=== PATIENT | male | born 1950 | race Caucasian/White ===

== ENCOUNTER → 2017-05-17 | Outpatient (CLI) | payer OTHER ==
[~2017-05-17] MED LIST: AMITRIPTYLINE H50 M2 PO; ASPIRIN EC81 M1 PO; FENTANYL PATCH75 MCG TOP; FLOMAX PO; LIPITOR20 MG PO; NEXIUM40 MG PO; REMERON15 M1 PO
== END ==
LOC: RAD 11:07
DX: J44.9 Chronic obstructive pulmonary disease, unspecified (principal)

== ENCOUNTER → 2020-01-08 | Outpatient (CLI) | payer OTHER | LOC: CAT 12:29 | PROVIDERS: ATTEND Family Medicine | DX: Z12.2 Encounter for screening for malignant neoplasm of respiratory organs (principal); F17.210 Nicotine dependence, cigarettes, uncomplicated; I25.10 Atherosclerotic heart disease of native coronary artery without angina pectoris; J98.4 Other disorders of lung; I67.1 Cerebral aneurysm, nonruptured ==

== ENCOUNTER 2020-06-04 11:03 | Emergency (ER) | payer OTHER ==
[~2020-06-04] VITALS: Ht 177.8 cm; Wt 74.4 kg
[2020-06-04] MEDS ORDERED: TESTOSTERO200 MG/1 M IM (11:12)
[2020-06-04] MEDS ORDERED: FENTANYL1 EAC2 TOP (11:13)
[2020-06-04] MEDS ORDERED: TAMSULOSIN HCL0.4 MG PO (11:13)
[2020-06-04] MEDS ORDERED: NORCO7.5 PO (11:13)
[2020-06-04 13:44] LABS: BASOPHILS 1.5 % (0.0-2.0); EOSINOPHILS 2.2 % (0.0-3.0); HEMATOCRIT 47.7 % (42.0-52.0); HEMOGLOBIN 15.7 gm/dL (14.0-18.0); LYMPHOCYTES 13.5 % (24.0-44.0); MCH 31.9 pg (26.0-34.0); MCHC 32.8 g/dL (28.0-37.0); MCV 97.2 fL (80.0-100.0); MONOCYTES 3.3 % (1.0-8.0); PLATELET COUNT 147 thou/uL (150-400); POLYS 79.5 % (36.0-66.0); RBC 4.91 mil/uL (4.50-6.00); RDW 14.8 % (10.5-14.5)
[2020-06-04 14:04] LABS: CALCIUM 8.7 mg/dL (8.5-10.1); POTASSIUM 4.3 mmol/L (3.5-5.1)
[2020-06-04 14:10] LABS: ALBUMIN 3.7 g/dL (3.4-5.0); TOTAL BILIRUBIN 0.5 mg/dL (0.2-1.0); TOTAL PROTEIN 6.9 g/dL (6.4-8.2)
[2020-06-04] MEDS ORDERED: PREDNISONE 20 M20 MG PO (16:44)
[2020-06-04] MEDS ORDERED: ZANAFLEX4 MG PO (16:44)
[2020-06-04 17:29] VITALS: BP 139/85
== END 2020-06-04 17:35 | disposition home or self-care (01) ==
LOC: ER 11:03
PROVIDERS: Nurse Practitioner
DX: M54.32 Sciatica, left side (principal); K21.9 Gastro-esophageal reflux disease without esophagitis; Z79.899 Other long term (current) drug therapy; Z88.0 Allergy status to penicillin; Z91.018 Allergy to other foods

== ENCOUNTER → 2020-06-10 | Outpatient (CLI) | payer OTHER ==
[~2020-06-10] MED LIST changes: +BYSTOLIC10 MG PO; +DURAGESIC1 EAC2 TRANSDERM; +FENTANYL1 EAC2 TOP; -FLOMAX PO; +FLOMAX0.4 MG PO; +MUPIROCIN1 GM TOP; +NORCO7.5 PO; +PREDNISONE 20 M20 MG PO; +ROSUVASTATIN CA20 MG PO; +TAMSULOSIN HCL0.4 MG PO; +TESTOSTERO200 MG/1 M IM; +TIZANIDINE HCL4 M1 PO; +ZANAFLEX4 MG PO
== END ==
LOC: SJCVCIMAG 14:41 → SJCVC 14:41
PROVIDERS: ATTEND Nuclear Medicine Nuclear Cardiology
DX: R94.31 Abnormal electrocardiogram [ECG] [EKG] (principal); E29.1 Testicular hypofunction; I71.4 Abdominal aortic aneurysm, without rupture; G89.29 Other chronic pain; I72.3 Aneurysm of iliac artery; I67.1 Cerebral aneurysm, nonruptured; I65.23 Occlusion and stenosis of bilateral carotid arteries; I77.9 Disorder of arteries and arterioles, unspecified; M54.40 Lumbago with sciatica, unspecified side; F17.200 Nicotine dependence, unspecified, uncomplicated; Z79.899 Other long term (current) drug therapy; Z88.0 Allergy status to penicillin

== ENCOUNTER → 2020-06-17 | Outpatient (CLI) | payer OTHER ==
[~2020-06-17] VITALS: Ht 177.8 cm; Wt 74.4 kg
[2020-06-17 07:26] VITALS: BP 113/65
[2020-06-17 08:49] LABS: BASOPHILS 1.3 % (0.0-2.0); EOSINOPHILS 1.7 % (0.0-3.0); HEMATOCRIT 42.7 % (42.0-52.0); HEMOGLOBIN 13.8 gm/dL (14.0-18.0); LYMPHOCYTES 19.6 % (24.0-44.0); MCH 31.5 pg (26.0-34.0); MCHC 32.3 g/dL (28.0-37.0); MCV 97.3 fL (80.0-100.0); MONOCYTES 3.9 % (1.0-8.0); PLATELET COUNT 149 thou/uL (150-400); POLYS 73.5 % (36.0-66.0); RBC 4.39 mil/uL (4.50-6.00); RDW 15.2 % (10.5-14.5); WBC 12.2 thou/uL (4.0-11.0)
[2020-06-17 09:03] LABS: APTT 26.2 Seconds (24.5-32.8); CALCIUM 8.1 mg/dL (8.5-10.1); INR 1.1; POTASSIUM 3.8 mmol/L (3.5-5.1); PROTIME 11.5 Seconds (9.3-11.4); TOTAL BILIRUBIN 0.3 mg/dL (0.2-1.0); TOTAL PROTEIN 5.7 g/dL (6.4-8.2)
[2020-06-17 10:26] LABS: URINE BLOOD NEGATIVE (Negative); URINE CLARITY CLEAR; URINE COLOR YELLOW; URINE GLUCOSE-RANDOM* NEGATIVE (Negative); URINE KETONES TRACE (Negative); URINE LEUKOCYTES-REFLEX NEGATIVE (Negative); URINE NITRITE-REFLEX NEGATIVE (Negative); URINE PROTEIN (DIPSTICK) TRACE (Negative); URINE SPECIFIC GRAVITY 1.025 (1.005-1.035); URINE UROBILINOGEN 0.2 E.U./dl (0.2-1.0)
[2020-06-17 10:31] LABS: ICTOTEST (BILI CONFIRMATORY) Negative (Negative); URINE BILIRUBIN NEGATIVE (Negative)
--- NOTE | 2020-06-17 14:16 | CATHLAB ---
[facility] [place] [address] INVASIVE PROCEDURE REPORT Name: MCELROYDOE C Room #: REG IVORY Alejandro.#: [id number] Admission: 06/17/20 Attend Phys: Herbert Chou MD Discharge: Date of : 48 Report #: [id number] THIS REPORT FOR: cc: Trung Matthew MD, Neal A. MD Mancuso, Gerald M. MD [facility] ~ APPROVED REPORT Study performed: 06/17/2020 11:58:53 Patient Details Patient Status: Out-Patient Room #: The patient is a 70 year-old male Event Personnel Flash Marshall Health Plan Advisor, Gely Vaughn RT(R)() Monitor, Alfonso Sparks RTR Scrub, Benita Groves RN money examiner Performed Art Access - L femoral artery* Left Heart Cath w/or w/o Coronaries [id number] [facility] [address] Initial Mod Sed Same Phys/QHP [facility] [id number] Mod Sed Same Phys/QHP Ea [id number] Procedure Narrative The patient was brought electively to the Cardiac Catheterization Laboratory and was prepped and draped in a sterile manner. The left femoral was infiltrated with 2% Lidocaine subcutaneous anesthesia. A SHEATH BRITE-TIP 6F X 11CM ([id number]) sheath was inserted into the LFA 6F^. Coronary angiography was performed using coronary diagnostic catheters. The right coronary system was accessed and visualized with a JR4 catheter. The left coronary system was accessed and visualized with a JL5 catheter. The left ventricle was accessed and visualized with a PIGTAIL catheter. Hemostasis was obtained with manual pressure following sheath removal without any complications. The patient tolerated the procedure well and there were no complications associated with the procedure. There was no hematoma. Intraoperative Conscious Sedation Fentanyl 150 mcg Versed 1 mg Fluoro Time: 19.43 minutes Dose: DAP 56991.30 cGycm2 Contrast Type and Amount: Visipaque 171 ml [facility] [place] [address] INVASIVE PROCEDURE REPORT Name: DOE MCELROY Room #: REG [facility]#: [id number] Admission: 06/17/20 Attend Phys: Herbert Chou, Discharge: Date of : 48 Report #: [id number] Hemodynamics The aortic pressure is 120/69 mmHg with a mean of 73 mmHg. The left ventricular pressure is 118/-6 mmHg with a mean of mmHg. The left ventricular end diastolic pressure is 13 mmHg. PCI Technique Lesion 2 Percutaneous Coronary Intervention was performed on the External iliac. Conclusion #1. Normal left ventricular size and systolic function EF 55% #2 left main short free of disease giving rise to LAD and circumflex. #3 LAD is minimal distal disease small caliber distally at the apex. #4 circumflex OM nondominant with mild irregularity #5 dominant right coronary with mild proximal disease 30% and a mid vessel disease of 40 to 50% with preserved PDA CRISTOBAL. No occlusive disease. Recommendations and plan: Continue aggressive risk factor modification no indication for coronary intervention. Okay to proceed with aortic stent graft repair of aortic aneurysm. <ELECTRONICALLY SIGNED> By: Flash Marshall MD, FACC 06/17/20 1415 1415 1415 Flash Marshall MD, FACC /INF
--- NOTE | 2020-06-17 15:25 | EKG ---
[address] [place] [address] ELECTROCARDIOGRAM REPORT Name: DOE MCELROY Room #: REG [facility]#: [id number] Admission: 06/17/20 Attend Phys: Herbert Chou MD Discharge: Date of : 48 Report #: [id number] [facility] Test Date: 2020-06-17 Test Time: 07:51:18 Pat Name: DOE MCELROY Department: Room: Gender: M Airline Reservation Agent: PETE : 1950 Requested By: Rashard Shaffer Order Number: [id number] MD: Nathanael Amaro Measurements Intervals [place] Rate: 55 P: 63 CA: 174 QRS: 22 QRSD: 82 T: 82 QT: 404 QTc: 387 Interpretive Statements Sinus rhythm Probable left atrial enlargement Nonspecific T abnormalities, lateral leads Compared to ECG 06/19/2008 08:16:41 T-wave abnormality now present ST (T wave) deviation no longer present Electronically Signed On 06-17-2020 15:24:56 CDT by Nathanael Amaro [email or web address] <ELECTRONICALLY SIGNED> By: Nathanael Amaro MD 06/17/20 1524 0751 [id number] Nathanael Amaro MD /BERENICE
== END | disposition home or self-care (01) ==
LOC: CATH 06:22
PROVIDERS: Surgery Vascular Surgery; ATTEND Nuclear Medicine Nuclear Cardiology
DX: I25.10 Atherosclerotic heart disease of native coronary artery without angina pectoris (principal); I71.4 Abdominal aortic aneurysm, without rupture; I72.3 Aneurysm of iliac artery; I70.1 Atherosclerosis of renal artery; I70.211 Atherosclerosis of native arteries of extremities with intermittent claudication, right leg; E78.5 Hyperlipidemia, unspecified; K21.9 Gastro-esophageal reflux disease without esophagitis; G47.30 Sleep apnea, unspecified; F17.210 Nicotine dependence, cigarettes, uncomplicated; Z98.890 Other specified postprocedural states; Z79.899 Other long term (current) drug therapy

== ENCOUNTER → 2020-06-24 | Outpatient (CLI) | payer OTHER ==
[~2020-06-24] MED LIST changes: +PLAVIX 75 MG TA75 MG PO
== END ==
LOC: LAB 10:30
PROVIDERS: ATTEND Surgery Vascular Surgery
DX: Z01.812 Encounter for preprocedural laboratory examination (principal); Z20.822 Contact with and (suspected) exposure to COVID-19

== ENCOUNTER 2020-06-28 06:19 | Inpatient (IN) | payer OTHER ==
[~2020-06-28] VITALS: Ht 177.8 cm; Wt 61.2 kg
[2020-06-28] VITALS (21 sets, daily range): BP systolic 95–143; BP diastolic 52–70
--- NOTE | 2020-06-28 16:21 | NUR ---
patient arrives to icu at 1400 from AAA repair procedure. patient arrives with nusing staff and cardene gtt 10mg/h. vital signs stable. patient has complaints of pain in bilateral groin sites. patient to lay flat for 4 hours
[2020-06-29] VITALS (25 sets, daily range): BP systolic 92–126; BP diastolic 44–72
[2020-06-29 06:09] LABS: HEMATOCRIT 38.2 % (42.0-52.0); HEMOGLOBIN 12.5 gm/dL (14.0-18.0); MCH 31.7 pg (26.0-34.0); MCHC 32.9 g/dL (28.0-37.0); MCV 96.4 fL (80.0-100.0); RBC 3.96 mil/uL (4.50-6.00); RDW 15.2 % (10.5-14.5)
[2020-06-29 06:23] LABS: CALCIUM 7.5 mg/dL (8.5-10.1); CREATININE 0.9 mg/dL (0.7-1.3); POTASSIUM 4.4 mmol/L (3.5-5.1)
--- NOTE | 2020-06-29 20:00 | NUR ---
PT ASSESSMENT COMPLETED, C/OING OF PAIN IN HIS GROIN AREA. PT MEDICATED. WILL CONT TO MONITOR.
--- NOTE | 2020-06-29 22:00 | NUR ---
PT PUT CALL LIGHT ON TO TELL ME HIS FINGERS ON HIS RT HAND WERE NUMB, NERU CHECK DONE NO CHANGES NOTED. VSS. WILL CONT TO MONITOR.
[2020-06-30] VITALS: BP 106/51
[2020-06-30 02:00] VITALS: BP 106/51
--- NOTE | 2020-06-30 03:22 | NUR ---
REPORT GIVEN TO ONCOMING NURSE.
--- NOTE | 2020-06-30 03:27 | NUR ---
PT TRANSFERRED TO ROOM 246 WITH BELONGINGS. PT REMAINS A&O X4, LEFT A-LINE PATENT, JOSE MIGUEL GROIN SITES CLEAN, DRY, INTACT WITHOUT BLEEDING OR HEMATOMA, VOIDING WITHOUT DIFFICULTY.
[2020-06-30 08:26] VITALS: BP 133/61
[2020-06-30 08:58] VITALS: BP 106/51
--- NOTE | 2020-06-30 10:10 | NUR ---
HOME WITH SELF CARE VIA WC. ALL BELONGINGS WITH PT;
--- NOTE | 2020-07-03 08:15 | O ---
[facility] [place] [address] OPERATIVE REPORT Name: LILIBETHDOE Chaka Room #: 246-P [facility] IN M.R.#: [id number] Admission: 06/28/20 Attend Phys: Rashard Shaffer MD Discharge: 06/30/20 Date of : 48 Report #: [id number] THIS REPORT FOR: cc: Trung Matthew MD, Neal A. MD Forman,Rashard Thomas MD ~ DATE OF SERVICE: 06/28/2020 PREOPERATIVE DIAGNOSIS: Abdominal and bilateral iliac artery aneurysms. POSTOPERATIVE DIAGNOSIS: Abdominal and bilateral iliac artery aneurysms. OPERATION: Stent graft implant for abdominal and bilateral iliac artery aneurysms with intraoperative arteriography and angioplasty. SURGEON: Dr. Rashard Shaffer and Dr. Herbert Chou. TUNNEL MINER: CONSTANCE Rodríguez. ANESTHESIA: General. INDICATIONS: The patient is a 70-year-old with a large abdominal and bilateral common iliac artery aneurysms. These were found when the patient was evaluated for back discomfort. FINDINGS AND TECHNIQUE: After general anesthesia was established, incisions were made in both groins to expose the common femoral arteries on each side, 10,000 units of heparin were given and 1000 units was given additionally at the 1-hour shoshana. Through each side, the Amplatz needle was used to gain access followed by guidewire and 6-Zimbabwean introducer. Over the guidewire, an exchange catheter was placed and Lj wire was placed on the left and an Amplatz wire was placed on the right. Because the patient had large common iliac aneurysms, a decision had been made prior to surgery to occlude the hypogastric artery on the right and this was done in the catheterization lab preop and then to place iliac branch device on the left side. With this plan in mind over the stiff wire on the right side, a 12-Zimbabwean introducer was placed through femoral artery cutdown and through the left side, the 16-Zimbabwean catheter sheath was placed over the stiff wire. A Storq wire was passed up through the left side sheath and it was captured with [facility] [address] [place] [address] OPERATIVE REPORT Name: DOE MCELROY Room #: 246-P [facility] IN M.R.#: [id number] Admission: 06/28/20 Attend Phys: Rashard Shaffre MD Discharge: 06/30/20 Date of : 48 Report #: [id number] a snare placed through the right side. With this technique, the Storq wire was brought up and over the aortic bifurcation and brought out through the right-sided 12-Zimbabwean dilator. This allowed the 12-Zimbabwean introducer to be advanced over the bifurcation and headed down the common iliac artery. Through the 12-Zimbabwean introducer, then the iliac branch device was placed. A 23 x 10 cm iliac branch device was placed on the left side through the 16-Zimbabwean catheter and opened and then through the sheath on the right side, wire was placed down through the open flow divider on the branch device into the hypogastric artery and good position was ascertained with arteriography prior to deploying a 10 mm x 7 cm internal iliac stent. The device was fully deployed using the compliant balloon placed through the left side and an angioplasty balloon placed into the hypogastric artery to fully dilate the device as well as an ostial hypogastric stenosis. When the iliac device was fully deployed, then the 12-Zimbabwean catheter was exchanged through an 18-Zimbabwean catheter on the right and then the main body for the aortic component of the 28.5 x 14.5 x 16 device was placed through the right femoral artery. Through the left side, a visceral catheter was placed into the left renal artery and the Storq wire was passed distally, so that an exchange catheter could be placed at the origin. This allowed good identification of the lowest renal artery to deploy the main body. The main body was opened such that the contralateral gate was opened. This was cannulated and then a marked pigtail was used to identify the flow divider on the main body as well as the landing zone on the iliac branch device and then a 27 mm x 10 cm bridge piece was placed. On the right side, the marked pigtail was then placed to identify the length needed to extend the graft from the main body down into the external iliac where previously (prior to this operation), an external iliac stent was placed. A 12 mm x 10 cm device was selected for this purpose. With all of the devices now in place, the compliant balloon was placed up each side sequentially to fully deploy. An angioplasty was also done of the iliac arteries on each side where there had been some narrowing, particularly on the right side where the device extended into a previously angioplastied region. With all of the angioplasties complete and the devices fully deployed, final arteriogram was taken using the pigtail catheter and this showed no evidence of [facility] [address] [place] [address] OPERATIVE REPORT Name: DOE MCELROY Room #: 246-P [facility] IN M.R.#: [id number] Admission: 06/28/20 Attend Phys: Rashard Shaffer MD Discharge: 06/30/20 Date of : 48 Report #: [id number] endoleak and good position of all the grafts. Satisfied with our graft position, dilators were replaced in the sheaths. Sheaths and dilators were removed and then stiff wires were removed and then each femoral cutdown was repaired with interrupted 6-0 Prolene. Flow was reestablished with return of good distal pulses. Protamine was given to reverse the heparin. The wounds were closed in layers at this point. The patient tolerated the procedure well and was taken to the recovery area in good condition. All counts reported as correct. <ELECTRONICALLY SIGNED> By: Rashard Shaffer MD 07/03/2015 0832 Rashard Shaffer MD /nt
== END 2020-06-30 10:10 | disposition home or self-care (01) | DRG 254 ==
LOC: TBA 06:19 → PRE 11:32 → ICU 14:23
PROVIDERS: Physician Assistant; ADMIT Surgery Vascular Surgery; ATTEND Surgery Vascular Surgery
DX: I71.4 Abdominal aortic aneurysm, without rupture (principal); I72.3 Aneurysm of iliac artery; E78.00 Pure hypercholesterolemia, unspecified; G89.29 Other chronic pain; M54.9 Dorsalgia, unspecified; K21.9 Gastro-esophageal reflux disease without esophagitis; I10 Essential (primary) hypertension; Z98.1 Arthrodesis status
CPT/HCPCS: 10078; 47375; 50010; 50101; 50386; 50455; 52287; 54118; 56524; 56526; 56528; 56531; 56668; 56760; 57093; 62110; 62900; 65020; 70005

== ENCOUNTER → 2020-07-22 | Outpatient (CLI) | payer OTHER | LOC: SJCVCIMAG 10:57 | PROVIDERS: ATTEND Nuclear Medicine Nuclear Cardiology | DX: I70.201 Unspecified atherosclerosis of native arteries of extremities, right leg (principal); M79.661 Pain in right lower leg; M79.662 Pain in left lower leg ==

== ENCOUNTER → 2020-07-30 | Outpatient (CLI) | payer OTHER ==
[2020-07-30 09:44] LABS: CALCIUM 9.1 mg/dL (8.5-10.1); CREATININE 1.3 mg/dL (0.7-1.3); POTASSIUM 3.9 mmol/L (3.5-5.1)
== END ==
LOC: LAB 08:45
PROVIDERS: ATTEND Nuclear Medicine Nuclear Cardiology
DX: N20.0 Calculus of kidney (principal); I71.4 Abdominal aortic aneurysm, without rupture; N40.1 Benign prostatic hyperplasia with lower urinary tract symptoms; I25.10 Atherosclerotic heart disease of native coronary artery without angina pectoris; M43.26 Fusion of spine, lumbar region; N28.1 Cyst of kidney, acquired

== ENCOUNTER → 2020-07-30 | Outpatient (CLI) | payer OTHER | LOC: SJCVC 11:34 | PROVIDERS: ATTEND Nuclear Medicine Nuclear Cardiology | DX: I71.4 Abdominal aortic aneurysm, without rupture (principal); I77.9 Disorder of arteries and arterioles, unspecified; E29.1 Testicular hypofunction; I67.1 Cerebral aneurysm, nonruptured; F17.200 Nicotine dependence, unspecified, uncomplicated; Z98.1 Arthrodesis status; Z95.828 Presence of other vascular implants and grafts; Z88.0 Allergy status to penicillin; Z79.899 Other long term (current) drug therapy ==

== ENCOUNTER → 2020-08-14 | Outpatient (CLI) | payer OTHER | LOC: SJCVC 10:13 | PROVIDERS: ATTEND Internal Medicine Cardiovascular Disease | DX: I25.10 Atherosclerotic heart disease of native coronary artery without angina pectoris (principal); E78.00 Pure hypercholesterolemia, unspecified; I71.4 Abdominal aortic aneurysm, without rupture; I72.3 Aneurysm of iliac artery; I73.9 Peripheral vascular disease, unspecified; I65.23 Occlusion and stenosis of bilateral carotid arteries; F17.200 Nicotine dependence, unspecified, uncomplicated; Z95.820 Peripheral vascular angioplasty status with implants and grafts; Z88.0 Allergy status to penicillin; Z79.899 Other long term (current) drug therapy ==

== ENCOUNTER → 2021-01-14 | Outpatient (CLI) | payer OTHER ==
[2021-01-14 10:15] LABS: CREATININE 1.1 mg/dL (0.7-1.3)
== END ==
LOC: RAD 08:49 → LAB 08:49
PROVIDERS: ATTEND Nuclear Medicine Nuclear Cardiology
DX: Z01.812 Encounter for preprocedural laboratory examination (principal); I71.4 Abdominal aortic aneurysm, without rupture; I25.10 Atherosclerotic heart disease of native coronary artery without angina pectoris; N20.0 Calculus of kidney; N40.0 Benign prostatic hyperplasia without lower urinary tract symptoms

== ENCOUNTER → 2021-01-21 | Outpatient (CLI) | payer OTHER | LOC: SJCVCIMAG 07:33 | PROVIDERS: ATTEND Internal Medicine Cardiovascular Disease | DX: R94.31 Abnormal electrocardiogram [ECG] [EKG] (principal); I65.23 Occlusion and stenosis of bilateral carotid arteries; I51.7 Cardiomegaly; I25.10 Atherosclerotic heart disease of native coronary artery without angina pectoris; I71.4 Abdominal aortic aneurysm, without rupture; I73.9 Peripheral vascular disease, unspecified; I77.9 Disorder of arteries and arterioles, unspecified; F17.210 Nicotine dependence, cigarettes, uncomplicated; E78.00 Pure hypercholesterolemia, unspecified; Z92.0 Personal history of contraception; Z95.828 Presence of other vascular implants and grafts; Z79.899 Other long term (current) drug therapy; Z72.89 Other problems related to lifestyle; Z88.0 Allergy status to penicillin ==